=== PATIENT | male | born 1935 | race Two or more races ===

== ENCOUNTER 2022-03-03 10:21 | Inpatient (IN) | payer OTHER ==
[~2022-03-03] VITALS: Ht 152.4 cm; Wt 89.8 kg
[2022-03-03] MEDS ORDERED: ELIQUIS2.5 MG (10:27)
[2022-03-03] MEDS ORDERED: TOPROL XL50 M1 (10:27)
[2022-03-03] MEDS ORDERED: ATACAND4 MG (10:27)
[2022-03-03] MEDS ORDERED: SIMVASTATIN5 MG (10:27)
--- NOTE | 2022-03-03 10:29 | NUR ---
PTE ALERTA Y ORIENTADO POR JUDITH ESFERAS CON BUEN PATRON RESPIRATORIO. REFIERE QUE HACE UNOS YOUNGBLOOD ATRAS, SE ESTABA ATENDIENDO EN UN [facility] [place]. PTE CON SAT:94%, SE PRESENTA A , EL MISMO REFIERE HUBICARLO EN AREA DE OBSERVACION
--- NOTE | 2022-03-03 10:49 | NUR ---
PTE EVALUADO POR EL DR ROME QUIEN ORDENA EL [place]. MS Elia MCCAULEY ORIENTA SOBRE EL TX ORDENADO, LO CUAL REFIERE ENTENDER, REALIZA PRUEBAS DE LABORATORIO Y ADMINISTRA MEDICAMENTO ZOHAIB ORDEN MEDICA Y SIGUIENDO MEDIDAS ASEPTICAS. XI X PORTABLE NOTIFICADOS A PERSONAL DE TURNO.
--- NOTE | 2022-03-03 15:37 | NUR ---
SE RECIBE PACIENTE DE TURNO ANTERIOR EN JASKARAN. PTE CON VENOPUNCION PATENTE Y PRECIOUS DE EDEMA BAJANMDO 0.9NS @125ML/HR.PTE PENDIENTE PARA REEVALUACION.
== END 2022-04-06 14:28 | disposition expired | DRG 207 ==
LOC: ER 10:21 → MEDJ 19:10 → SEC-K 19:10 → MEDJ 20:46 → SEC-K 22:01 → MEDJ 03-04 18:14 → SEC-K 03-05 11:04 → MEDJ 03-07 02:28 → ICU 03-16 21:34
PROVIDERS: ADMIT Internal Medicine; ATTEND Internal Medicine
PROC: 8E0ZXY6 Isolation (ICD-10-PCS; 2022-03-03)
PROC: 5A09457 Assistance with Respiratory Ventilation, 24-96 Consecutive Hours, Continuous Positive Airway Pressure (ICD-10-PCS; 2022-03-03)
PROC: 4A12X4Z Monitoring of Cardiac Electrical Activity, External Approach (ICD-10-PCS; 2022-03-03)
PROC: B24BYZZ Ultrasonography of Heart with Aorta using Other Contrast (ICD-10-PCS; 2022-03-03)
PROC: BW2410Z Computerized Tomography (CT Scan) of Chest and Abdomen using Low Osmolar Contrast, Unenhanced and Enhanced (ICD-10-PCS; 2022-03-03)
PROC: XW033E5 Introduction of Remdesivir Anti-infective into Peripheral Vein, Percutaneous Approach, New Technology Group 5 (ICD-10-PCS; 2022-03-04)
PROC: BQ48ZZZ Ultrasonography of Left Knee (ICD-10-PCS; 2022-03-04)
PROC: 5A0945A Assistance with Respiratory Ventilation, 24-96 Consecutive Hours, High Flow/Velocity Cannula (ICD-10-PCS; 2022-03-05)
PROC: 5A1955Z Respiratory Ventilation, Greater than 96 Consecutive Hours (ICD-10-PCS; principal; 2022-03-16)
PROC: 0BH17EZ Insertion of Endotracheal Airway into Trachea, Via Natural or Artificial Opening (ICD-10-PCS; 2022-03-16)
PROC: 05HY33Z Insertion of Infusion Device into Upper Vein, Percutaneous Approach (ICD-10-PCS; 2022-03-16)
PROC: BW2410Z Computerized Tomography (CT Scan) of Chest and Abdomen using Low Osmolar Contrast, Unenhanced and Enhanced (ICD-10-PCS; 2022-03-24)
PROC: 30243N1 Transfusion of Nonautologous Red Blood Cells into Central Vein, Percutaneous Approach (ICD-10-PCS; 2022-04-02)
DX: U07.1 COVID-19 (principal); I50.23 Acute on chronic systolic (congestive) heart failure; J96.21 Acute and chronic respiratory failure with hypoxia; J12.82 Pneumonia due to coronavirus disease 2019; J96.22 Acute and chronic respiratory failure with hypercapnia; A41.52 Sepsis due to Pseudomonas; R65.21 Severe sepsis with septic shock; I50.33 Acute on chronic diastolic (congestive) heart failure; E87.4 Mixed disorder of acid-base balance; N39.0 Urinary tract infection, site not specified; R64 Cachexia; Z74.09 Other reduced mobility; Z66 Do not resuscitate; I11.0 Hypertensive heart disease with heart failure; L89.151 Pressure ulcer of sacral region, stage 1; N40.0 Benign prostatic hyperplasia without lower urinary tract symptoms; Z68.28 Body mass index [BMI] 28.0-28.9, adult; I48.91 Unspecified atrial fibrillation